=== PATIENT | male | born 1980 ===

== ENCOUNTER 2021-07-13 12:50 | Inpatient (IN) | payer OTHER ==
[2021-07-13 16:39] VITALS: BMI 29.2
[2021-07-13] MEDS ORDERED: guaiFENesin 200 MG/10 ML 10 ML UNIT-DOSE CUPS PO PRN (17:14)
[2021-07-13] MEDS ORDERED: NALOXONE HCL 0.4 MG/ML VIAL IM PRN (17:14)
[2021-07-13] MEDS ORDERED: MAG HYDROX/AL HYDROX/SIMETH 30 ML UNIT-DOSE CUP PO PRN (17:14)
[2021-07-13] MEDS ORDERED: NALOXONE (NARCAN) HCL 4 MG/0.1 ML SPRAY NS PRN (17:14)
[2021-07-13] MEDS ORDERED: MAGNESIUM CITRATE 300 ML BOTTLE PO PRN (17:14)
[2021-07-13] MEDS ORDERED: IBUPROFEN 400 MG TABLET (FP) PO PRN (17:14)
[2021-07-13] MEDS ORDERED: LOPERAMIDE HCL 2 MG CAPSULE PO PRN (17:14)
[2021-07-13] MEDS ORDERED: P-EPHED 60MG/TRIPROLIDI 2.5MG TABLET PO PRN (17:14)
[2021-07-13] MEDS ORDERED: MAGNESIUM HYDROX 2400MG/30ML ORAL SUSPENSION 30 ML CUP PO PRN (17:14)
[2021-07-13] MEDS ORDERED: diphenhydrAMINE HCL 25 MG CAPSULE (FP) PO ONE ×2 (17:19→17:30)
[2021-07-13] MEDS ORDERED: HYDROCORTISONE 1% TOPICAL CREAM 30 GM TUBE TP PRN (17:20)
[2021-07-13] MEDS: MELATONIN 5 MG TABLETS PO SCH (23:31)
[2021-07-13] MEDS: hydrOXYzine PAMOATE 25 MG CAPSULE (FP) PO PRN (23:32)
[2021-07-13] MEDS: THIAMINE HCL 100 MG TABLET (FP) PO SCH (23:32)
[2021-07-13] MEDS: NICOTINE 10 MG CARTRIDGE (INHALER) IH PRN (23:35)
[2021-07-14] MEDS: PRENATAL VITAMINS W/ FOLIC ACID TABLET (FP) PO SCH (09:28)
[2021-07-14] MEDS: TOLNAFTATE 1% POWDER 45 GM POW TP SCH ×3 (09:29→21:16)
[2021-07-14] MEDS: NICOTINE 21 MG/24 HOURS TOPICAL PATCH TD SCH (09:29)
[2021-07-14 10:34] LABS: HEMATOCRIT 44.2 % (35.4-49); HEMOGLOBIN 15.2 GM/dL (11.7-16.9); MCH 31.4 pg (25.7-33.7); MCHC 34.4 g/dl (32.0-35.9); MEAN CELL VOLUME 91.5 fl (80-96); RBC 4.83 M/mm3 (4.00-5.60); RDW 13.8 % (11.9-15.9); WHITE BLOOD COUNT 9.9 K/mm3 (4.0-10.0)
[2021-07-14 10:47] LABS: ALBUMIN 3.1 g/dl (3.4-5.0)
[2021-07-14 10:50] LABS: BILIRUBIN,TOTAL 0.5 mg/dL (0.2-1); CREATININE 1.2 mg/dL (0.55-1.3)
[2021-07-14 10:51] LABS: CALCIUM 8.7 mg/dL (8.5-10.1)
[2021-07-14 11:08] LABS: SYPHILIS W/ RPR CONF NON-REACTIVE (NONREACTIVE)
[2021-07-14 11:37] LABS: PLATELET COUNT 157 10^3/uL (134-434)
[2021-07-14] MEDS: NICOTINE 10 MG CARTRIDGE (INHALER) IH PRN ×2 (11:37→20:33)
[2021-07-14 11:38] LABS: MEAN PLT VOLUME 9.4 fl (7.5-11.1)
[2021-07-14] MEDS: hydrOXYzine PAMOATE 25 MG CAPSULE (FP) PO PRN (13:42)
[2021-07-14] MEDS ORDERED: PT OWN MED DRAWER 7, Y5N ONE (19:32)
[2021-07-14] MEDS: THIAMINE HCL 100 MG TABLET (FP) PO SCH (21:15)
[2021-07-14] MEDS: MELATONIN 5 MG TABLETS PO SCH (21:15)
[2021-07-15] MEDS: hydrOXYzine PAMOATE 25 MG CAPSULE (FP) PO PRN ×2 (09:31→21:33)
[2021-07-15] MEDS: PRENATAL VITAMINS W/ FOLIC ACID TABLET (FP) PO SCH (09:31)
[2021-07-15] MEDS: TOLNAFTATE 1% POWDER 45 GM POW TP SCH ×2 (09:31→21:30)
[2021-07-15] MEDS: NICOTINE 21 MG/24 HOURS TOPICAL PATCH TD SCH (09:32)
[2021-07-15] MEDS ORDERED: PT OWN MED DRAWER 7, Y5N ONE ×2 (09:32→19:57)
[2021-07-15] MEDS: NICOTINE 10 MG CARTRIDGE (INHALER) IH PRN ×2 (12:29→18:40)
[2021-07-15] MEDS: MELATONIN 5 MG TABLETS PO SCH (21:30)
[2021-07-15] MEDS: THIAMINE HCL 100 MG TABLET (FP) PO SCH (21:30)
[2021-07-15] MEDS: ACETAMINOPHEN 325 MG TABLET (FP) PO PRN (21:31)
[2021-07-16] MEDS: NICOTINE 21 MG/24 HOURS TOPICAL PATCH TD SCH (09:53)
[2021-07-16] MEDS: TOLNAFTATE 1% POWDER 45 GM POW TP SCH ×2 (09:53→21:07)
[2021-07-16] MEDS: PRENATAL VITAMINS W/ FOLIC ACID TABLET (FP) PO SCH ×2 (09:53→09:56)
[2021-07-16] MEDS: NICOTINE 10 MG CARTRIDGE (INHALER) IH PRN ×3 (09:56→22:44)
[2021-07-16] MEDS: hydrOXYzine PAMOATE 25 MG CAPSULE (FP) PO PRN ×2 (09:56→21:06)
[2021-07-16] MEDS: MINERAL OIL/PETROLAT/WATER TOPICAL CREAM 113 GM JAR TP SCH (13:54)
[2021-07-16] MEDS: COLLOIDAL OATMEAL 1 BAR EACH TP PRN (13:55)
[2021-07-16] MEDS ORDERED: PT OWN MED DRAWER 7, Y5N ONE (21:05)
[2021-07-16] MEDS: THIAMINE HCL 100 MG TABLET (FP) PO SCH (21:06)
[2021-07-16] MEDS: MELATONIN 5 MG TABLETS PO SCH (21:08)
[2021-07-17] MEDS ORDERED: PT OWN MED DRAWER 7, Y5N ONE (08:48)
[2021-07-17] MEDS: TOLNAFTATE 1% POWDER 45 GM POW TP SCH ×2 (10:15→21:43)
[2021-07-17] MEDS: PRENATAL VITAMINS W/ FOLIC ACID TABLET (FP) PO SCH (10:15)
[2021-07-17] MEDS: NICOTINE 21 MG/24 HOURS TOPICAL PATCH TD SCH (10:15)
[2021-07-17] MEDS: MINERAL OIL/PETROLAT/WATER TOPICAL CREAM 113 GM JAR TP SCH (10:15)
[2021-07-17] MEDS: MELATONIN 5 MG TABLETS PO SCH (21:40)
[2021-07-17] MEDS: THIAMINE HCL 100 MG TABLET (FP) PO SCH (21:40)
[2021-07-17] MEDS: NICOTINE 10 MG CARTRIDGE (INHALER) IH PRN (21:42)
[2021-07-17] MEDS: hydrOXYzine PAMOATE 25 MG CAPSULE (FP) PO PRN (21:42)
[2021-07-18] MEDS: MINERAL OIL/PETROLAT/WATER TOPICAL CREAM 113 GM JAR TP SCH (11:08)
[2021-07-18] MEDS: PRENATAL VITAMINS W/ FOLIC ACID TABLET (FP) PO SCH (11:09)
[2021-07-18] MEDS: TOLNAFTATE 1% POWDER 45 GM POW TP SCH ×2 (11:09→21:32)
[2021-07-18] MEDS: NICOTINE 21 MG/24 HOURS TOPICAL PATCH TD SCH (11:09)
[2021-07-18] MEDS: NICOTINE 10 MG CARTRIDGE (INHALER) IH PRN (17:44)
[2021-07-18] MEDS: MELATONIN 5 MG TABLETS PO SCH (21:32)
[2021-07-18] MEDS: THIAMINE HCL 100 MG TABLET (FP) PO SCH (21:32)
[2021-07-18] MEDS: hydrOXYzine PAMOATE 25 MG CAPSULE (FP) PO PRN (21:32)
[2021-07-18] MEDS ORDERED: PT OWN MED DRAWER 7, Y5N ONE (21:57)
[2021-07-19] MEDS: MINERAL OIL/PETROLAT/WATER TOPICAL CREAM 113 GM JAR TP SCH (10:15)
[2021-07-19] MEDS: TOLNAFTATE 1% POWDER 45 GM POW TP SCH ×2 (10:15→22:27)
[2021-07-19] MEDS: NICOTINE 21 MG/24 HOURS TOPICAL PATCH TD SCH (10:15)
[2021-07-19] MEDS: PRENATAL VITAMINS W/ FOLIC ACID TABLET (FP) PO SCH (10:15)
[2021-07-19] MEDS: NICOTINE 10 MG CARTRIDGE (INHALER) IH PRN ×2 (17:59→21:22)
[2021-07-19] MEDS: THIAMINE HCL 100 MG TABLET (FP) PO SCH (21:21)
[2021-07-19] MEDS: hydrOXYzine PAMOATE 25 MG CAPSULE (FP) PO PRN (21:22)
[2021-07-19] MEDS ORDERED: traZODone HCL 50 MG TABLET (FP) PO SCH (22:00)
[2021-07-20] MEDS ORDERED: PT OWN MED DRAWER 7, Y5N ONE ×3 (09:02→19:58)
[2021-07-20] MEDS: NICOTINE 21 MG/24 HOURS TOPICAL PATCH TD SCH (10:40)
[2021-07-20] MEDS: MINERAL OIL/PETROLAT/WATER TOPICAL CREAM 113 GM JAR TP SCH (10:40)
[2021-07-20] MEDS: PRENATAL VITAMINS W/ FOLIC ACID TABLET (FP) PO SCH (10:40)
[2021-07-20] MEDS: TOLNAFTATE 1% POWDER 45 GM POW TP SCH ×2 (10:40→21:16)
[2021-07-20] MEDS: NICOTINE 10 MG CARTRIDGE (INHALER) IH PRN (21:13)
[2021-07-20] MEDS: hydrOXYzine PAMOATE 25 MG CAPSULE (FP) PO PRN (21:14)
[2021-07-20] MEDS: THIAMINE HCL 100 MG TABLET (FP) PO SCH (21:14)
[2021-07-20] MEDS: traZODone HCL 50 MG TABLET (FP) PO SCH (21:14)
[2021-07-21] MEDS: ACETAMINOPHEN 325 MG TABLET (FP) PO PRN (07:10)
[2021-07-21] MEDS: NICOTINE 21 MG/24 HOURS TOPICAL PATCH TD SCH (10:20)
[2021-07-21] MEDS: TOLNAFTATE 1% POWDER 45 GM POW TP SCH ×2 (10:20→21:14)
[2021-07-21] MEDS: PRENATAL VITAMINS W/ FOLIC ACID TABLET (FP) PO SCH (10:20)
[2021-07-21] MEDS: MINERAL OIL/PETROLAT/WATER TOPICAL CREAM 113 GM JAR TP SCH (10:20)
[2021-07-21] MEDS ORDERED: PT OWN MED DRAWER 7, Y5N ONE ×2 (19:47→22:19)
[2021-07-21] MEDS: traZODone HCL 50 MG TABLET (FP) PO SCH (21:14)
[2021-07-21] MEDS: NICOTINE 10 MG CARTRIDGE (INHALER) IH PRN (21:14)
[2021-07-21] MEDS: THIAMINE HCL 100 MG TABLET (FP) PO SCH (21:15)
[2021-07-21] MEDS: hydrOXYzine PAMOATE 25 MG CAPSULE (FP) PO PRN (21:15)
[2021-07-22] MEDS: TOLNAFTATE 1% POWDER 45 GM POW TP SCH (10:33)
[2021-07-22] MEDS: MINERAL OIL/PETROLAT/WATER TOPICAL CREAM 113 GM JAR TP SCH (10:33)
[2021-07-22] MEDS: NICOTINE 21 MG/24 HOURS TOPICAL PATCH TD SCH (10:33)
[2021-07-22] MEDS: PRENATAL VITAMINS W/ FOLIC ACID TABLET (FP) PO SCH (10:33)
[2021-07-22] MEDS: NICOTINE 10 MG CARTRIDGE (INHALER) IH PRN (17:44)
[2021-07-22] MEDS: traZODone HCL 50 MG TABLET (FP) PO SCH (21:04)
[2021-07-22] MEDS: hydrOXYzine PAMOATE 25 MG CAPSULE (FP) PO PRN (21:05)
[2021-07-22] MEDS: THIAMINE HCL 100 MG TABLET (FP) PO SCH (21:05)
[2021-07-22] MEDS ORDERED: PT OWN MED DRAWER 7, Y5N ONE ×2 (21:06→22:07)
[2021-07-23] MEDS: TOLNAFTATE 1% POWDER 45 GM POW TP SCH ×3 (00:06→22:25)
[2021-07-23] MEDS ORDERED: PT OWN MED DRAWER 7, Y5N ONE ×3 (09:49→21:06)
[2021-07-23] MEDS: PRENATAL VITAMINS W/ FOLIC ACID TABLET (FP) PO SCH (10:20)
[2021-07-23] MEDS: MINERAL OIL/PETROLAT/WATER TOPICAL CREAM 113 GM JAR TP SCH (10:20)
[2021-07-23] MEDS: NICOTINE 21 MG/24 HOURS TOPICAL PATCH TD SCH (10:20)
[2021-07-23] MEDS: THIAMINE HCL 100 MG TABLET (FP) PO SCH (21:03)
[2021-07-23] MEDS: NICOTINE 10 MG CARTRIDGE (INHALER) IH PRN (21:06)
[2021-07-23] MEDS: hydrOXYzine PAMOATE 25 MG CAPSULE (FP) PO PRN (21:06)
[2021-07-23] MEDS ORDERED: QUEtiapine FUMARATE 100 MG TABLET (FP) PO SCH (22:00)
[2021-07-24] MEDS: PRENATAL VITAMINS W/ FOLIC ACID TABLET (FP) PO SCH (09:40)
[2021-07-24] MEDS: TOLNAFTATE 1% POWDER 45 GM POW TP SCH ×2 (09:41→21:26)
[2021-07-24] MEDS: MINERAL OIL/PETROLAT/WATER TOPICAL CREAM 113 GM JAR TP SCH (09:41)
[2021-07-24] MEDS: NICOTINE 21 MG/24 HOURS TOPICAL PATCH TD SCH (09:41)
[2021-07-24] MEDS: NICOTINE 10 MG CARTRIDGE (INHALER) IH PRN ×2 (09:41→21:08)
[2021-07-24] MEDS ORDERED: PT OWN MED DRAWER 7, Y5N ONE ×2 (20:23→23:40)
[2021-07-24] MEDS: THIAMINE HCL 100 MG TABLET (FP) PO SCH (21:06)
[2021-07-24] MEDS: SUVOREXANT 10 MG TABLET PO PRN (21:06)
[2021-07-24] MEDS: hydrOXYzine PAMOATE 25 MG CAPSULE (FP) PO PRN (21:06)
[2021-07-25] MEDS ORDERED: PT OWN MED DRAWER 7, Y5N ONE ×3 (09:00→21:15)
[2021-07-25] MEDS: NICOTINE 21 MG/24 HOURS TOPICAL PATCH TD SCH (10:08)
[2021-07-25] MEDS: TOLNAFTATE 1% POWDER 45 GM POW TP SCH ×2 (10:08→21:18)
[2021-07-25] MEDS: PRENATAL VITAMINS W/ FOLIC ACID TABLET (FP) PO SCH (10:08)
[2021-07-25] MEDS: MINERAL OIL/PETROLAT/WATER TOPICAL CREAM 113 GM JAR TP SCH (10:08)
[2021-07-25] MEDS: THIAMINE HCL 100 MG TABLET (FP) PO SCH (21:06)
[2021-07-25] MEDS: NICOTINE 10 MG CARTRIDGE (INHALER) IH PRN (21:12)
[2021-07-25] MEDS: SUVOREXANT 10 MG TABLET PO PRN (21:14)
[2021-07-25] MEDS: COLLOIDAL OATMEAL 1 BAR EACH TP PRN (21:17)
[2021-07-26] MEDS: TOLNAFTATE 1% POWDER 45 GM POW TP SCH ×2 (10:52→21:18)
[2021-07-26] MEDS: MINERAL OIL/PETROLAT/WATER TOPICAL CREAM 113 GM JAR TP SCH (10:52)
[2021-07-26] MEDS: PRENATAL VITAMINS W/ FOLIC ACID TABLET (FP) PO SCH (10:52)
[2021-07-26] MEDS: NICOTINE 21 MG/24 HOURS TOPICAL PATCH TD SCH (10:52)
[2021-07-26] MEDS ORDERED: PT OWN MED DRAWER 7, Y5N ONE (20:01)
[2021-07-26] MEDS: NICOTINE 10 MG CARTRIDGE (INHALER) IH PRN (21:11)
[2021-07-26] MEDS: hydrOXYzine PAMOATE 25 MG CAPSULE (FP) PO PRN (21:12)
[2021-07-26] MEDS: THIAMINE HCL 100 MG TABLET (FP) PO SCH (21:12)
[2021-07-26] MEDS: SUVOREXANT 15 MG TABLET PO PRN (21:13)
[2021-07-27] MEDS: NICOTINE 10 MG CARTRIDGE (INHALER) IH PRN ×2 (09:37→21:04)
[2021-07-27] MEDS: PRENATAL VITAMINS W/ FOLIC ACID TABLET (FP) PO SCH (09:37)
[2021-07-27] MEDS: TOLNAFTATE 1% POWDER 45 GM POW TP SCH ×2 (09:38→23:12)
[2021-07-27] MEDS: MINERAL OIL/PETROLAT/WATER TOPICAL CREAM 113 GM JAR TP SCH (09:38)
[2021-07-27] MEDS: NICOTINE 21 MG/24 HOURS TOPICAL PATCH TD SCH (09:38)
[2021-07-27] MEDS: SUVOREXANT 15 MG TABLET PO PRN (21:03)
[2021-07-27] MEDS: THIAMINE HCL 100 MG TABLET (FP) PO SCH (21:03)
[2021-07-27] MEDS: hydrOXYzine PAMOATE 25 MG CAPSULE (FP) PO PRN (21:03)
[2021-07-28] MEDS: MINERAL OIL/PETROLAT/WATER TOPICAL CREAM 113 GM JAR TP SCH (11:43)
[2021-07-28] MEDS: TOLNAFTATE 1% POWDER 45 GM POW TP SCH ×2 (11:43→21:41)
[2021-07-28] MEDS: NICOTINE 21 MG/24 HOURS TOPICAL PATCH TD SCH (11:43)
[2021-07-28] MEDS: PRENATAL VITAMINS W/ FOLIC ACID TABLET (FP) PO SCH (11:43)
[2021-07-28] MEDS: NICOTINE 10 MG CARTRIDGE (INHALER) IH PRN ×2 (14:20→21:13)
[2021-07-28] MEDS: hydrOXYzine PAMOATE 25 MG CAPSULE (FP) PO PRN (21:12)
[2021-07-28] MEDS: SUVOREXANT 15 MG TABLET PO PRN (21:12)
[2021-07-28] MEDS: THIAMINE HCL 100 MG TABLET (FP) PO SCH (21:12)
[2021-07-29] MEDS: PRENATAL VITAMINS W/ FOLIC ACID TABLET (FP) PO SCH (10:13)
[2021-07-29] MEDS: MINERAL OIL/PETROLAT/WATER TOPICAL CREAM 113 GM JAR TP SCH (10:13)
[2021-07-29] MEDS: NICOTINE 21 MG/24 HOURS TOPICAL PATCH TD SCH (10:13)
[2021-07-29] MEDS: TOLNAFTATE 1% POWDER 45 GM POW TP SCH ×2 (10:13→21:08)
[2021-07-29] MEDS ORDERED: PT OWN MED DRAWER 7, Y5N ONE (19:57)
[2021-07-29] MEDS: SUVOREXANT 15 MG TABLET PO PRN (21:07)
[2021-07-29] MEDS: hydrOXYzine PAMOATE 25 MG CAPSULE (FP) PO PRN (21:08)
[2021-07-29] MEDS: THIAMINE HCL 100 MG TABLET (FP) PO SCH (21:08)
[2021-07-29] MEDS: NICOTINE 10 MG CARTRIDGE (INHALER) IH PRN (21:10)
[2021-07-30] MEDS: TOLNAFTATE 1% POWDER 45 GM POW TP SCH ×2 (10:15→21:19)
[2021-07-30] MEDS: NICOTINE 21 MG/24 HOURS TOPICAL PATCH TD SCH (10:15)
[2021-07-30] MEDS: MINERAL OIL/PETROLAT/WATER TOPICAL CREAM 113 GM JAR TP SCH (10:15)
[2021-07-30] MEDS: PRENATAL VITAMINS W/ FOLIC ACID TABLET (FP) PO SCH (10:15)
[2021-07-30] MEDS: NICOTINE 10 MG CARTRIDGE (INHALER) IH PRN ×2 (12:57→21:15)
[2021-07-30] MEDS ORDERED: PT OWN MED DRAWER 7, Y5N ONE ×2 (16:04→21:18)
[2021-07-30] MEDS: SUVOREXANT 20 MG TABLET PO PRN (21:16)
[2021-07-30] MEDS: THIAMINE HCL 100 MG TABLET (FP) PO SCH (21:17)
[2021-07-30] MEDS: hydrOXYzine PAMOATE 25 MG CAPSULE (FP) PO PRN (21:17)
[2021-07-30 22:28] LABS: HIV INTERPRETATION NEGATIVE (NEGATIVE)
[2021-07-31] MEDS: TOLNAFTATE 1% POWDER 45 GM POW TP SCH ×2 (10:03→21:18)
[2021-07-31] MEDS: PRENATAL VITAMINS W/ FOLIC ACID TABLET (FP) PO SCH (10:03)
[2021-07-31] MEDS: NICOTINE 21 MG/24 HOURS TOPICAL PATCH TD SCH (10:03)
[2021-07-31] MEDS: MINERAL OIL/PETROLAT/WATER TOPICAL CREAM 113 GM JAR TP SCH (10:03)
[2021-07-31] MEDS: SUVOREXANT 20 MG TABLET PO PRN (21:16)
[2021-07-31] MEDS: THIAMINE HCL 100 MG TABLET (FP) PO SCH (21:16)
[2021-07-31] MEDS: QUEtiapine FUMARATE 50 MG TABLET PO SCH (21:16)
[2021-07-31] MEDS ORDERED: PT OWN MED DRAWER 7, Y5N ONE (21:17)
[2021-07-31] MEDS: NICOTINE 10 MG CARTRIDGE (INHALER) IH PRN (22:00)
[2021-08-01] MEDS: PRENATAL VITAMINS W/ FOLIC ACID TABLET (FP) PO SCH (10:26)
[2021-08-01] MEDS: TOLNAFTATE 1% POWDER 45 GM POW TP SCH ×2 (10:26→22:03)
[2021-08-01] MEDS: MINERAL OIL/PETROLAT/WATER TOPICAL CREAM 113 GM JAR TP SCH (10:26)
[2021-08-01] MEDS: NICOTINE 21 MG/24 HOURS TOPICAL PATCH TD SCH (10:26)
[2021-08-01] MEDS ORDERED: PT OWN MED DRAWER 7, Y5N ONE ×2 (21:56→22:03)
[2021-08-01] MEDS: NICOTINE 10 MG CARTRIDGE (INHALER) IH PRN (22:00)
[2021-08-01] MEDS: THIAMINE HCL 100 MG TABLET (FP) PO SCH (22:01)
[2021-08-01] MEDS: QUEtiapine FUMARATE 50 MG TABLET PO SCH (22:01)
[2021-08-02] MEDS: NICOTINE 21 MG/24 HOURS TOPICAL PATCH TD SCH (10:10)
[2021-08-02] MEDS: TOLNAFTATE 1% POWDER 45 GM POW TP SCH (10:10)
[2021-08-02] MEDS: MINERAL OIL/PETROLAT/WATER TOPICAL CREAM 113 GM JAR TP SCH (10:10)
[2021-08-02] MEDS: PRENATAL VITAMINS W/ FOLIC ACID TABLET (FP) PO SCH (10:10)
[2021-08-02] MEDS: NICOTINE 10 MG CARTRIDGE (INHALER) IH PRN ×2 (15:18→21:36)
[2021-08-02] MEDS: QUEtiapine FUMARATE 50 MG TABLET PO SCH (21:56)
[2021-08-02] MEDS: SUVOREXANT 20 MG TABLET PO PRN (21:56)
[2021-08-02] MEDS: THIAMINE HCL 100 MG TABLET (FP) PO SCH (21:57)
[2021-08-02] MEDS: NYSTATIN POWDER 100,000 UNITS/GM - 15 GM TOPICAL POWDER TP SCH (21:58)
[2021-08-02] MEDS ORDERED: PT OWN MED DRAWER 7, Y5N ONE (22:00)
[2021-08-03] MEDS: MINERAL OIL/PETROLAT/WATER TOPICAL CREAM 113 GM JAR TP SCH (10:20)
[2021-08-03] MEDS: PRENATAL VITAMINS W/ FOLIC ACID TABLET (FP) PO SCH (10:20)
[2021-08-03] MEDS: NICOTINE 21 MG/24 HOURS TOPICAL PATCH TD SCH (10:20)
[2021-08-03] MEDS: NYSTATIN POWDER 100,000 UNITS/GM - 15 GM TOPICAL POWDER TP SCH ×2 (10:20→21:56)
[2021-08-03] MEDS: hydrOXYzine PAMOATE 25 MG CAPSULE (FP) PO PRN (21:31)
[2021-08-03] MEDS: NICOTINE 10 MG CARTRIDGE (INHALER) IH PRN (21:31)
[2021-08-03] MEDS: THIAMINE HCL 100 MG TABLET (FP) PO SCH (21:31)
[2021-08-03] MEDS: QUEtiapine FUMARATE 50 MG TABLET PO SCH (21:31)
[2021-08-03] MEDS: SUVOREXANT 20 MG TABLET PO PRN (21:32)
[2021-08-03] MEDS ORDERED: PT OWN MED DRAWER 7, Y5N ONE (21:57)
[2021-08-04] MEDS: NICOTINE 21 MG/24 HOURS TOPICAL PATCH TD SCH (10:15)
[2021-08-04] MEDS: PRENATAL VITAMINS W/ FOLIC ACID TABLET (FP) PO SCH (10:15)
[2021-08-04] MEDS: MINERAL OIL/PETROLAT/WATER TOPICAL CREAM 113 GM JAR TP SCH (10:15)
[2021-08-04] MEDS: NYSTATIN POWDER 100,000 UNITS/GM - 15 GM TOPICAL POWDER TP SCH ×2 (10:15→21:42)
[2021-08-04] MEDS: THIAMINE HCL 100 MG TABLET (FP) PO SCH (21:41)
[2021-08-04] MEDS: SUVOREXANT 20 MG TABLET PO PRN (21:41)
[2021-08-04] MEDS: QUEtiapine FUMARATE 50 MG TABLET PO SCH (21:42)
[2021-08-04] MEDS: NICOTINE 10 MG CARTRIDGE (INHALER) IH PRN (21:43)
[2021-08-05] MEDS: PRENATAL VITAMINS W/ FOLIC ACID TABLET (FP) PO SCH (09:24)
[2021-08-05] MEDS: NYSTATIN POWDER 100,000 UNITS/GM - 15 GM TOPICAL POWDER TP SCH ×2 (09:24→22:09)
[2021-08-05] MEDS: NICOTINE 21 MG/24 HOURS TOPICAL PATCH TD SCH (09:24)
[2021-08-05] MEDS: MINERAL OIL/PETROLAT/WATER TOPICAL CREAM 113 GM JAR TP SCH (09:24)
[2021-08-05] MEDS ORDERED: PT OWN MED DRAWER 7, Y5N ONE ×2 (22:07→22:18)
[2021-08-05] MEDS: QUEtiapine FUMARATE 50 MG TABLET PO SCH (22:08)
[2021-08-05] MEDS: SUVOREXANT 20 MG TABLET PO PRN (22:08)
[2021-08-05] MEDS: THIAMINE HCL 100 MG TABLET (FP) PO SCH (22:08)
[2021-08-05] MEDS: NICOTINE 10 MG CARTRIDGE (INHALER) IH PRN (22:14)
[2021-08-06 07:29] VITALS: BP 167/105; PULSE 114; TEMP 96.9
[2021-08-06] MEDS: NICOTINE 10 MG CARTRIDGE (INHALER) IH PRN (08:23)
== END 2021-08-06 08:50 | disposition home or self-care (01) | DRG 772 ==
LOC: YASAS 12:50 → Y3E 22:00
PROVIDERS: ADMIT Allergy & Immunology; ATTEND Allergy & Immunology
PROC: HZ42ZZZ Group Counseling for Substance Abuse Treatment, Cognitive-Behavioral (ICD-10-PCS; principal; 2021-07-13)
DX: F11.20 Opioid dependence, uncomplicated (principal); F10.20 Alcohol dependence, uncomplicated; F14.20 Cocaine dependence, uncomplicated; F17.210 Nicotine dependence, cigarettes, uncomplicated; F32.A Depression, unspecified; F19.24 Other psychoactive substance dependence with psychoactive substance-induced mood disorder; F19.282 Other psychoactive substance dependence with psychoactive substance-induced sleep disorder; B35.3 Tinea pedis; L98.8 Other specified disorders of the skin and subcutaneous tissue; L23.9 Allergic contact dermatitis, unspecified cause; M54.50 Low back pain, unspecified; G89.29 Other chronic pain; R21 Rash and other nonspecific skin eruption; Z56.0 Unemployment, unspecified; Z59.02 Unsheltered homelessness
CPT/HCPCS: 36415; 80053; 85027; 86780; 86803; 87389; C9803; U0003; U0005

== ENCOUNTER 2022-01-10 10:07 | Inpatient (IN) | payer OTHER ==
[2022-01-10 10:34] VITALS: BMI 27.0
[2022-01-10] MEDS ORDERED: LOPERAMIDE HCL 2 MG CAPSULE PO PRN (12:07)
[2022-01-10] MEDS ORDERED: ACETAMINOPHEN 325 MG TABLET (FP) PO PRN (12:07)
[2022-01-10] MEDS ORDERED: P-EPHED 60MG/TRIPROLIDI 2.5MG TABLET PO PRN (12:07)
[2022-01-10] MEDS ORDERED: MAGNESIUM CITRATE 300 ML BOTTLE PO PRN (12:07)
[2022-01-10] MEDS ORDERED: IBUPROFEN 400 MG TABLET (FP) PO PRN (12:07)
[2022-01-10] MEDS ORDERED: MAGNESIUM HYDROX 2400MG/30ML ORAL SUSPENSION 30 ML CUP PO PRN (12:07)
[2022-01-10] MEDS ORDERED: guaiFENesin 200 MG/10 ML 10 ML UNIT-DOSE CUPS PO PRN (12:07)
[2022-01-10] MEDS: PRENATAL VITAMINS W/ FOLIC ACID TABLET (FP) PO SCH (17:43)
[2022-01-10] MEDS: NICOTINE 7 MG/24 HOURS TOPICAL PATCH TD SCH (17:43)
[2022-01-10] MEDS: hydrOXYzine PAMOATE 25 MG CAPSULE (FP) PO SCH ×3 (17:44→21:21)
[2022-01-10] MEDS: NICOTINE 10 MG CARTRIDGE (INHALER) IH PRN (21:20)
[2022-01-10] MEDS: QUEtiapine FUMARATE 100 MG TABLET (FP) PO SCH (21:21)
[2022-01-10] MEDS ORDERED: MELATONIN 5 MG TABLETS PO SCH (22:00)
[2022-01-10] MEDS: THIAMINE HCL 100 MG TABLET (FP) PO SCH (23:22)
[2022-01-11] MEDS: hydrOXYzine PAMOATE 25 MG CAPSULE (FP) PO SCH (06:08)
[2022-01-11] MEDS ORDERED: methaDONE HCL 10 MG TABLET PO SCH (07:45)
[2022-01-11] MEDS ORDERED: methaDONE HCL 10 MG TABLET ONE (08:36)
[2022-01-11] MEDS ORDERED: methaDONE HCL 40 MG DISPERSABLE TABLET ONE (08:36)
[2022-01-11] MEDS: NICOTINE 7 MG/24 HOURS TOPICAL PATCH TD SCH (10:24)
[2022-01-11] MEDS: PRENATAL VITAMINS W/ FOLIC ACID TABLET (FP) PO SCH (10:24)
[2022-01-11] MEDS ORDERED: hydrOXYzine PAMOATE 25 MG CAPSULE (FP) PO PRN (10:39)
[2022-01-11] MEDS: SUVOREXANT 10 MG TABLET PO PRN (21:20)
[2022-01-11] MEDS: QUEtiapine FUMARATE 100 MG TABLET (FP) PO SCH (21:20)
[2022-01-11] MEDS: THIAMINE HCL 100 MG TABLET (FP) PO SCH (21:20)
[2022-01-12] MEDS ORDERED: methaDONE HCL 10 MG TABLET ONE (04:13)
[2022-01-12] MEDS ORDERED: methaDONE HCL 40 MG DISPERSABLE TABLET ONE (04:14)
[2022-01-12] MEDS: PRENATAL VITAMINS W/ FOLIC ACID TABLET (FP) PO SCH (10:08)
[2022-01-12] MEDS: NICOTINE 7 MG/24 HOURS TOPICAL PATCH TD SCH (10:08)
[2022-01-12] MEDS: NICOTINE 10 MG CARTRIDGE (INHALER) IH PRN ×2 (10:10→21:19)
[2022-01-12] MEDS: SUVOREXANT 10 MG TABLET PO PRN (21:19)
[2022-01-12] MEDS: THIAMINE HCL 100 MG TABLET (FP) PO SCH (21:19)
[2022-01-12] MEDS: QUEtiapine FUMARATE 100 MG TABLET (FP) PO SCH (21:20)
[2022-01-13] MEDS ORDERED: methaDONE HCL 40 MG DISPERSABLE TABLET ONE (03:44)
[2022-01-13] MEDS ORDERED: methaDONE HCL 10 MG TABLET ONE (03:44)
[2022-01-13] MEDS: NICOTINE 10 MG CARTRIDGE (INHALER) IH PRN (10:00)
[2022-01-13] MEDS: PRENATAL VITAMINS W/ FOLIC ACID TABLET (FP) PO SCH (10:00)
[2022-01-13] MEDS: NICOTINE 7 MG/24 HOURS TOPICAL PATCH TD SCH (10:01)
[2022-01-13 14:39] LABS: HEMATOCRIT 40.3 % (35.4-49); HEMOGLOBIN 13.8 GM/dL (11.7-16.9); MCH 30.7 pg (25.7-33.7); MCHC 34.3 g/dl (32.0-35.9); MEAN CELL VOLUME 89.5 fl (80-96); MEAN PLT VOLUME 8.9 fl (7.5-11.1); PLATELET COUNT 157 10^3/uL (134-434); RDW 14.2 % (11.9-15.9); WHITE BLOOD COUNT 11.2 K/mm3 (4.0-10.0)
[2022-01-13 14:56] LABS: ALBUMIN 2.8 g/dl (3.4-5.0); BLOOD UREA NITROGEN 10.6 mg/dL (7-18); CALCIUM 8.2 mg/dL (8.5-10.1); CREATININE 1.3 mg/dL (0.55-1.3)
[2022-01-13 14:58] LABS: TOT PROT 6.3 g/dl (6.4-8.2)
[2022-01-13 15:05] LABS: BILIRUBIN,TOTAL 0.3 mg/dL (0.2-1)
[2022-01-13 15:15] LABS: SYPHILIS W/ RPR CONF NON-REACTIVE (NONREACTIVE)
[2022-01-13] MEDS: THIAMINE HCL 100 MG TABLET (FP) PO SCH (21:17)
[2022-01-13] MEDS: QUEtiapine FUMARATE 100 MG TABLET (FP) PO SCH (21:17)
[2022-01-13] MEDS: SUVOREXANT 10 MG TABLET PO PRN (21:19)
[2022-01-14] MEDS ORDERED: methaDONE HCL 10 MG TABLET ONE (04:54)
[2022-01-14] MEDS ORDERED: methaDONE HCL 40 MG DISPERSABLE TABLET ONE (04:54)
[2022-01-14] MEDS: PRENATAL VITAMINS W/ FOLIC ACID TABLET (FP) PO SCH (09:58)
[2022-01-14] MEDS: NICOTINE 7 MG/24 HOURS TOPICAL PATCH TD SCH (10:00)
[2022-01-14] MEDS: NICOTINE 10 MG CARTRIDGE (INHALER) IH PRN ×2 (10:00→21:24)
[2022-01-14] MEDS: QUEtiapine FUMARATE 100 MG TABLET (FP) PO SCH (21:24)
[2022-01-14] MEDS: THIAMINE HCL 100 MG TABLET (FP) PO SCH (21:24)
[2022-01-15] MEDS ORDERED: methaDONE HCL 10 MG TABLET ONE (05:30)
[2022-01-15] MEDS ORDERED: methaDONE HCL 40 MG DISPERSABLE TABLET ONE (05:30)
[2022-01-15] MEDS: NICOTINE 7 MG/24 HOURS TOPICAL PATCH TD SCH (10:04)
[2022-01-15] MEDS: PRENATAL VITAMINS W/ FOLIC ACID TABLET (FP) PO SCH (10:04)
[2022-01-15] MEDS: NICOTINE 10 MG CARTRIDGE (INHALER) IH PRN ×2 (15:07→21:38)
[2022-01-15 15:23] LABS: EPI CELLS 32 /uL (0-25.1); HYALINE CASTS 6 /uL (0-3.1); URINE APPEARANCE CLEAR; URINE BACTERIA 14 /uL (0-1359); URINE BILIRUBIN NEGATIVE (NEGATIVE); URINE COLOR DK YELLOW; URINE GLUCOSE (UA) NEGATIVE (NEGATIVE); URINE KETONE TRACE (NEGATIVE); URINE LEUK ESTERASE 2+ (NEGATIVE); URINE NITRITE NEGATIVE (NEGATIVE); URINE PROTEIN NEGATIVE (NEGATIVE); URINE WBC 279 /uL (0-25.8)
[2022-01-15 18:48] LABS: URINE CRYSTALS MODERATE /hpf; URINE RBC 61.9 /uL (0-23.9)
[2022-01-15] MEDS: THIAMINE HCL 100 MG TABLET (FP) PO SCH (21:34)
[2022-01-15] MEDS: QUEtiapine FUMARATE 100 MG TABLET (FP) PO SCH (21:34)
[2022-01-15] MEDS: SUVOREXANT 10 MG TABLET PO PRN (21:34)
[2022-01-15] MEDS: busPIRone HCL 10 MG TABLET (FP) PO SCH (21:34)
[2022-01-16] MEDS ORDERED: methaDONE HCL 10 MG TABLET ONE (02:47)
[2022-01-16] MEDS ORDERED: methaDONE HCL 40 MG DISPERSABLE TABLET ONE (02:48)
[2022-01-16] MEDS: PRENATAL VITAMINS W/ FOLIC ACID TABLET (FP) PO SCH (10:22)
[2022-01-16] MEDS: busPIRone HCL 10 MG TABLET (FP) PO SCH ×2 (10:22→21:16)
[2022-01-16] MEDS: NICOTINE 7 MG/24 HOURS TOPICAL PATCH TD SCH (10:22)
[2022-01-16] MEDS: NICOTINE 10 MG CARTRIDGE (INHALER) IH PRN ×2 (11:06→21:15)
[2022-01-16 14:08] LABS: SARS-CoV-2 NAA Not Detected (Not Detected)
[2022-01-16] MEDS: QUEtiapine FUMARATE 100 MG TABLET (FP) PO SCH (21:16)
[2022-01-16] MEDS: THIAMINE HCL 100 MG TABLET (FP) PO SCH (21:16)
[2022-01-16] MEDS: SUVOREXANT 10 MG TABLET PO PRN (21:18)
[2022-01-17] MEDS ORDERED: methaDONE HCL 10 MG TABLET ONE (02:31)
[2022-01-17] MEDS ORDERED: methaDONE HCL 40 MG DISPERSABLE TABLET ONE (02:31)
[2022-01-17] MEDS: busPIRone HCL 10 MG TABLET (FP) PO SCH ×2 (10:06→21:26)
[2022-01-17] MEDS: NICOTINE 10 MG CARTRIDGE (INHALER) IH PRN ×3 (10:06→21:26)
[2022-01-17] MEDS: PRENATAL VITAMINS W/ FOLIC ACID TABLET (FP) PO SCH (10:06)
[2022-01-17] MEDS: NICOTINE 7 MG/24 HOURS TOPICAL PATCH TD SCH (10:06)
[2022-01-17 12:13] LABS: INR 1.16 (0.83-1.09); PROTHROMBIN TIME (PATIENT) 13.4 SEC (9.7-13.0)
[2022-01-17 12:17] LABS: ALBUMIN 2.9 g/dl (3.4-5.0); BLOOD UREA NITROGEN 9.7 mg/dL (7-18); CALCIUM 8.4 mg/dL (8.5-10.1)
[2022-01-17 12:20] LABS: CREATININE 1.2 mg/dL (0.55-1.3)
[2022-01-17 12:23] LABS: BILIRUBIN,TOTAL 0.4 mg/dL (0.2-1); TOT PROT 6.5 g/dl (6.4-8.2)
[2022-01-17] MEDS: MAG HYDROX/AL HYDROX/SIMETH 30 ML UNIT-DOSE CUP PO PRN (12:35)
[2022-01-17] MEDS: QUEtiapine FUMARATE 100 MG TABLET (FP) PO SCH (21:26)
[2022-01-17] MEDS: THIAMINE HCL 100 MG TABLET (FP) PO SCH (21:26)
[2022-01-17] MEDS: SUVOREXANT 10 MG TABLET PO PRN (21:28)
[2022-01-18] MEDS ORDERED: methaDONE HCL 10 MG TABLET ONE (04:55)
[2022-01-18] MEDS ORDERED: methaDONE HCL 40 MG DISPERSABLE TABLET ONE (04:56)
[2022-01-18] MEDS: PRENATAL VITAMINS W/ FOLIC ACID TABLET (FP) PO SCH (10:19)
[2022-01-18] MEDS: busPIRone HCL 10 MG TABLET (FP) PO SCH ×2 (10:19→21:23)
[2022-01-18] MEDS: NICOTINE 7 MG/24 HOURS TOPICAL PATCH TD SCH (10:19)
[2022-01-18] MEDS: MAG HYDROX/AL HYDROX/SIMETH 30 ML UNIT-DOSE CUP PO PRN (10:20)
[2022-01-18] MEDS: NICOTINE 10 MG CARTRIDGE (INHALER) IH PRN ×2 (13:44→21:22)
[2022-01-18] MEDS: SUVOREXANT 10 MG TABLET PO PRN (21:23)
[2022-01-18] MEDS: THIAMINE HCL 100 MG TABLET (FP) PO SCH (21:23)
[2022-01-18] MEDS: QUEtiapine FUMARATE 100 MG TABLET (FP) PO SCH (21:23)
[2022-01-19] MEDS ORDERED: methaDONE HCL 40 MG DISPERSABLE TABLET ONE (03:01)
[2022-01-19] MEDS ORDERED: methaDONE HCL 10 MG TABLET ONE (03:01)
[2022-01-19] MEDS: NICOTINE 10 MG CARTRIDGE (INHALER) IH PRN ×2 (10:30→17:44)
[2022-01-19] MEDS: PRENATAL VITAMINS W/ FOLIC ACID TABLET (FP) PO SCH (10:30)
[2022-01-19] MEDS: busPIRone HCL 10 MG TABLET (FP) PO SCH ×2 (10:30→21:33)
[2022-01-19] MEDS: NICOTINE 7 MG/24 HOURS TOPICAL PATCH TD SCH (10:30)
[2022-01-19] MEDS: MAG HYDROX/AL HYDROX/SIMETH 30 ML UNIT-DOSE CUP PO PRN (10:31)
[2022-01-19] MEDS ORDERED: ONDANSETRON *ODT* 4 MG TABLET SL PRN (12:27)
[2022-01-19] MEDS: QUEtiapine FUMARATE 100 MG TABLET (FP) PO SCH (21:33)
[2022-01-19] MEDS: THIAMINE HCL 100 MG TABLET (FP) PO SCH (21:33)
[2022-01-19] MEDS ORDERED: SUVOREXANT 10 MG TABLET PO ONE (22:00)
[2022-01-20] MEDS ORDERED: methaDONE HCL 40 MG DISPERSABLE TABLET ONE (03:09)
[2022-01-20] MEDS ORDERED: methaDONE HCL 10 MG TABLET ONE (03:09)
[2022-01-20] MEDS: PRENATAL VITAMINS W/ FOLIC ACID TABLET (FP) PO SCH (10:17)
[2022-01-20] MEDS: busPIRone HCL 10 MG TABLET (FP) PO SCH ×2 (10:17→21:38)
[2022-01-20] MEDS: NICOTINE 7 MG/24 HOURS TOPICAL PATCH TD SCH (10:17)
[2022-01-20] MEDS: NICOTINE 10 MG CARTRIDGE (INHALER) IH PRN ×2 (10:17→22:00)
[2022-01-20] MEDS: THIAMINE HCL 100 MG TABLET (FP) PO SCH (21:39)
[2022-01-20] MEDS: QUEtiapine FUMARATE 100 MG TABLET (FP) PO SCH (21:39)
[2022-01-20] MEDS ORDERED: SUVOREXANT 10 MG TABLET PO PRN (22:00)
[2022-01-21] MEDS ORDERED: methaDONE HCL 10 MG TABLET ONE (03:44)
[2022-01-21] MEDS ORDERED: methaDONE HCL 40 MG DISPERSABLE TABLET ONE (03:44)
[2022-01-21 07:19] VITALS: BP 106/73; PULSE 104; TEMP 97.8
[2022-01-21] MEDS: PRENATAL VITAMINS W/ FOLIC ACID TABLET (FP) PO SCH (10:24)
[2022-01-21] MEDS: busPIRone HCL 10 MG TABLET (FP) PO SCH (10:24)
[2022-01-21] MEDS: NICOTINE 7 MG/24 HOURS TOPICAL PATCH TD SCH (10:24)
[2022-01-21] MEDS: MAG HYDROX/AL HYDROX/SIMETH 30 ML UNIT-DOSE CUP PO PRN (10:25)
[2022-01-21] MEDS: NICOTINE 10 MG CARTRIDGE (INHALER) IH PRN (10:28)
[2022-01-21] MEDS ORDERED: FAMOTIDINE 20 MG TABLET PO SCH (11:00)
== END 2022-01-21 13:32 | disposition home or self-care (01) | DRG 772 ==
LOC: YASAS 10:07 → Y5N 15:48
PROVIDERS: ADMIT Allergy & Immunology; ATTEND Allergy & Immunology
PROC: HZ42ZZZ Group Counseling for Substance Abuse Treatment, Cognitive-Behavioral (ICD-10-PCS; principal; 2022-01-10)
DX: F11.20 Opioid dependence, uncomplicated (principal); F10.20 Alcohol dependence, uncomplicated; F14.20 Cocaine dependence, uncomplicated; F12.10 Cannabis abuse, uncomplicated; F17.210 Nicotine dependence, cigarettes, uncomplicated; F19.282 Other psychoactive substance dependence with psychoactive substance-induced sleep disorder; F19.24 Other psychoactive substance dependence with psychoactive substance-induced mood disorder; F41.9 Anxiety disorder, unspecified; G35 Multiple sclerosis; L23.9 Allergic contact dermatitis, unspecified cause; L98.8 Other specified disorders of the skin and subcutaneous tissue; M54.50 Low back pain, unspecified; G89.29 Other chronic pain; B35.3 Tinea pedis; R10.13 Epigastric pain; Z62.810 Personal history of physical and sexual abuse in childhood; Z91.410 Personal history of adult physical and sexual abuse; Z59.00 Homelessness unspecified; Z56.0 Unemployment, unspecified
CPT/HCPCS: 36415; 80053; 81003; 82962; 85027; 85610; 86780; 86803; 93005; 93010; C9803-CS; U0003; U0005

== ENCOUNTER 2022-03-15 08:52 | Inpatient (IN) | payer OTHER ==
[2022-03-15 03:27] VITALS: BMI 26.9
[2022-03-15] MEDS ORDERED: methaDONE HCL 10 MG TABLET (FOR DETOX USE ONLY) PO ONE (11:20)
[2022-03-15] MEDS ORDERED: DICYCLOMINE HCL 10 MG CAPSULE PO PRN (11:20)
[2022-03-15] MEDS ORDERED: MAGNESIUM CITRATE 300 ML BOTTLE PO PRN (11:20)
[2022-03-15] MEDS ORDERED: BENZOCAINE/MENTHOL (CHLORASEPTIC ) LOZENGE MM PRN (11:20)
[2022-03-15] MEDS ORDERED: IBUPROFEN 400 MG TABLET (FP) PO PRN (11:20)
[2022-03-15] MEDS ORDERED: MAGNESIUM HYDROX 2400MG/30ML ORAL SUSPENSION 30 ML CUP PO PRN (11:20)
[2022-03-15] MEDS ORDERED: cloNIDine HCL 0.1 MG TABLET PO PRN (11:20)
[2022-03-15] MEDS ORDERED: ACETAMINOPHEN 325 MG TABLET (FP) PO PRN ×2 (11:20)
[2022-03-15] MEDS ORDERED: MAG HYDROX/AL HYDROX/SIMETH 30 ML UNIT-DOSE CUP PO PRN (11:20)
[2022-03-15] MEDS ORDERED: LOPERAMIDE HCL 2 MG CAPSULE PO PRN (11:20)
[2022-03-15] MEDS ORDERED: ONDANSETRON *ODT* 4 MG TABLET SL PRN (11:20)
[2022-03-15] MEDS ORDERED: BISMUTH SUBSALICYLATE 524 MG/30 ML PO PRN (11:20)
[2022-03-15] MEDS ORDERED: NICOTINE POLACRILEX 4 MG GUM BUC PRN (11:20)
[2022-03-15] MEDS ORDERED: NICOTINE 10 MG CARTRIDGE (INHALER) IH PRN (11:20)
[2022-03-15] MEDS ORDERED: hydrOXYzine PAMOATE 25 MG CAPSULE (FP) PO SCH (14:00)
[2022-03-15] MEDS: SULFAMETHOXAZOLE/TRIMETHOPRIM 800MG/160MG D.S. TABLET PO SCH ×2 (14:55→22:56)
[2022-03-15] MEDS: PRENATAL VITAMINS W/ FOLIC ACID TABLET (FP) PO SCH (14:55)
[2022-03-15] MEDS ORDERED: MELATONIN 5 MG TABLETS PO SCH (22:00)
[2022-03-15] MEDS: THIAMINE HCL 100 MG TABLET (FP) PO SCH (22:56)
[2022-03-15] MEDS: METHOCARBAMOL 500 MG TABLET PO PRN (22:57)
[2022-03-16] MEDS ORDERED: methaDONE HCL 10 MG TABLET (FOR DETOX USE ONLY) ONE (09:34)
[2022-03-16 10:57] LABS: HEMOGLOBIN 14.5 GM/dL (11.7-16.9); MCHC 34.5 g/dl (32.0-35.9); MEAN CELL VOLUME 89.8 fl (80-96); MEAN PLT VOLUME 9.2 fl (7.5-11.1); PLATELET COUNT 167 10^3/uL (134-434); RBC 4.67 M/mm3 (4.00-5.60); WHITE BLOOD COUNT 7.4 K/mm3 (4.0-10.0)
[2022-03-16 10:59] LABS: ALBUMIN 3.4 g/dl (3.4-5.0); BLOOD UREA NITROGEN 8.8 mg/dL (7-18)
[2022-03-16 11:01] LABS: CREATININE 1.1 mg/dL (0.55-1.3)
[2022-03-16 11:03] LABS: BILIRUBIN,TOTAL 0.7 mg/dL (0.2-1); TOT PROT 8.3 g/dl (6.4-8.2)
[2022-03-16] MEDS: IBUPROFEN 600 MG TABLET (FP) PO PRN ×2 (11:18→22:19)
[2022-03-16] MEDS: PRENATAL VITAMINS W/ FOLIC ACID TABLET (FP) PO SCH (11:19)
[2022-03-16] MEDS: SULFAMETHOXAZOLE/TRIMETHOPRIM 800MG/160MG D.S. TABLET PO SCH ×2 (11:19→22:19)
[2022-03-16] MEDS: SUVOREXANT 10 MG TABLET PO PRN (22:18)
[2022-03-16] MEDS: METHOCARBAMOL 500 MG TABLET PO PRN (22:19)
[2022-03-16] MEDS: THIAMINE HCL 100 MG TABLET (FP) PO SCH (22:19)
[2022-03-16] MEDS: QUEtiapine FUMARATE 50 MG TABLET PO SCH (22:19)
[2022-03-17] MEDS ORDERED: methaDONE HCL 10 MG TABLET (FOR DETOX USE ONLY) PO ONE (10:00)
[2022-03-17] MEDS: PRENATAL VITAMINS W/ FOLIC ACID TABLET (FP) PO SCH (10:30)
[2022-03-17] MEDS: IBUPROFEN 600 MG TABLET (FP) PO PRN (10:31)
[2022-03-17] MEDS: SULFAMETHOXAZOLE/TRIMETHOPRIM 800MG/160MG D.S. TABLET PO SCH ×2 (10:31→22:24)
[2022-03-17] MEDS: METHOCARBAMOL 500 MG TABLET PO PRN ×2 (10:31→22:26)
[2022-03-17] MEDS: THIAMINE HCL 100 MG TABLET (FP) PO SCH (22:24)
[2022-03-17] MEDS: QUEtiapine FUMARATE 50 MG TABLET PO SCH (22:24)
[2022-03-17] MEDS: SUVOREXANT 10 MG TABLET PO PRN (22:25)
[2022-03-18] MEDS ORDERED: methaDONE HCL 10 MG TABLET (FOR DETOX USE ONLY) ONE (09:15)
[2022-03-18] MEDS: PRENATAL VITAMINS W/ FOLIC ACID TABLET (FP) PO SCH (10:21)
[2022-03-18] MEDS: METHOCARBAMOL 500 MG TABLET PO PRN (10:21)
[2022-03-18] MEDS: IBUPROFEN 600 MG TABLET (FP) PO PRN (10:21)
[2022-03-18] MEDS: SULFAMETHOXAZOLE/TRIMETHOPRIM 800MG/160MG D.S. TABLET PO SCH (10:21)
[2022-03-18 17:19] VITALS: BP 113/72; PULSE 90; TEMP 98.8
[2022-03-19] MEDS ORDERED: methaDONE HCL 10 MG TABLET (FOR DETOX USE ONLY) PO ONE (10:00)
== END 2022-03-18 17:22 | disposition left against medical advice (07) | DRG 770 ==
LOC: YASAS 08:52 → Y3N 13:32
PROVIDERS: ADMIT Allergy & Immunology; ATTEND Surgery
PROC: HZ2ZZZZ Detoxification Services for Substance Abuse Treatment (ICD-10-PCS; principal; 2022-03-15)
DX: F11.23 Opioid dependence with withdrawal (principal); F14.20 Cocaine dependence, uncomplicated; F12.20 Cannabis dependence, uncomplicated; F17.201 Nicotine dependence, unspecified, in remission; F19.282 Other psychoactive substance dependence with psychoactive substance-induced sleep disorder; F19.24 Other psychoactive substance dependence with psychoactive substance-induced mood disorder; G35 Multiple sclerosis; L02.413 Cutaneous abscess of right upper limb; Z62.810 Personal history of physical and sexual abuse in childhood; Z91.410 Personal history of adult physical and sexual abuse; Z56.0 Unemployment, unspecified; Z59.00 Homelessness unspecified; Z91.013 Allergy to seafood
CPT/HCPCS: 36415; 80053; 85027; 86780; C9803-CS; J0735; U0003; U0005

== ENCOUNTER 2022-08-15 13:09 | Inpatient (IN) | payer OTHER ==
[2022-08-15 14:13] VITALS: BMI 25.8
[2022-08-15] MEDS ORDERED: IBUPROFEN 400 MG TABLET (FP) PO PRN (15:39)
[2022-08-15] MEDS ORDERED: cloNIDine HCL 0.1 MG TABLET PO PRN ×2 (15:39→15:50)
[2022-08-15] MEDS ORDERED: methaDONE HCL 10 MG TABLET (FOR DETOX USE ONLY) PO ONE ×2 (15:39→17:15)
[2022-08-15] MEDS ORDERED: MAGNESIUM HYDROX 2400MG/30ML ORAL SUSPENSION 30 ML CUP PO PRN (15:39)
[2022-08-15] MEDS ORDERED: BISMUTH SUBSALICYLATE 524 MG/30 ML PO PRN (15:39)
[2022-08-15] MEDS ORDERED: LOPERAMIDE HCL 2 MG CAPSULE PO PRN (15:39)
[2022-08-15] MEDS ORDERED: ONDANSETRON *ODT* 4 MG TABLET SL PRN (15:39)
[2022-08-15] MEDS ORDERED: METHOCARBAMOL 500 MG TABLET PO PRN (15:39)
[2022-08-15] MEDS ORDERED: MAGNESIUM CITRATE 300 ML BOTTLE PO PRN (15:39)
[2022-08-15] MEDS ORDERED: DICYCLOMINE HCL 10 MG CAPSULE PO PRN (15:39)
[2022-08-15] MEDS ORDERED: NICOTINE POLACRILEX 4 MG GUM BUC PRN (15:39)
[2022-08-15] MEDS ORDERED: BENZOCAINE/MENTHOL (CHLORASEPTIC ) LOZENGE MM PRN (15:39)
[2022-08-15] MEDS ORDERED: IBUPROFEN 600 MG TABLET (FP) PO PRN (15:39)
[2022-08-15] MEDS ORDERED: NALOXONE HCL (KLOXXADO) 8 MG SPRAY NS PRN (15:39)
[2022-08-15] MEDS ORDERED: MAG HYDROX/AL HYDROX/SIMETH 30 ML UNIT-DOSE CUP PO PRN (15:39)
[2022-08-15] MEDS ORDERED: ACETAMINOPHEN 325 MG TABLET (FP) PO PRN ×2 (15:39)
[2022-08-15] MEDS ORDERED: NICOTINE 7 MG/24 HOURS TOPICAL PATCH TD PRN (15:39)
[2022-08-15] MEDS ORDERED: LORazepam 1 MG TABLET PO PRN (15:47)
[2022-08-15] MEDS: hydrOXYzine PAMOATE 25 MG CAPSULE (FP) PO PRN (16:38)
[2022-08-15] MEDS: LORazepam 2 MG TABLET PO SCH ×3 (16:39→23:29)
[2022-08-15] MEDS ORDERED: LORazepam 2 MG TABLET PO SCH (23:00)
[2022-08-15] MEDS: MELATONIN 5 MG TABLETS PO SCH ×2 (23:15→23:31)
[2022-08-15] MEDS: THIAMINE HCL 100 MG TABLET (FP) PO SCH ×2 (23:15→23:31)
[2022-08-16] MEDS: LORazepam 2 MG TABLET PO SCH ×3 (06:05→17:40)
[2022-08-16] MEDS: PRENATAL VITAMINS W/ FOLIC ACID TABLET (FP) PO SCH (10:53)
[2022-08-16 11:28] LABS: HEMATOCRIT 44.1 % (35.4-49); HEMOGLOBIN 15.4 GM/dL (11.7-16.9); MCH 30.9 pg (25.7-33.7); MCHC 34.8 g/dl (32.0-35.9); MEAN CELL VOLUME 88.8 fl (80-96); MEAN PLT VOLUME 8.5 fl (7.5-11.1); PLATELET COUNT 274 10^3/uL (134-434); RBC 4.97 M/mm3 (4.00-5.60); RDW 13.9 % (11.9-15.9); WHITE BLOOD COUNT 10.2 K/mm3 (4.0-10.0)
[2022-08-16 11:31] LABS: ALBUMIN 3.7 g/dl (3.4-5.0); BLOOD UREA NITROGEN 10.9 mg/dL (7-18); CALCIUM 9.7 mg/dL (8.5-10.1)
[2022-08-16 11:37] LABS: BILIRUBIN,TOTAL 0.6 mg/dL (0.2-1); TOT PROT 8.2 g/dl (6.4-8.2)
[2022-08-16] MEDS: MELATONIN 5 MG TABLETS PO SCH (22:49)
[2022-08-16] MEDS: THIAMINE HCL 100 MG TABLET (FP) PO SCH (22:49)
[2022-08-17] MEDS: LORazepam 1 MG TABLET PO SCH ×4 (06:00→22:54)
[2022-08-17] MEDS ORDERED: methaDONE HCL 10 MG TABLET (FOR DETOX USE ONLY) PO ONE ×2 (10:00)
[2022-08-17] MEDS: PRENATAL VITAMINS W/ FOLIC ACID TABLET (FP) PO SCH (10:10)
[2022-08-17] MEDS: amLODIPine BESYLATE 2.5 MG TABLET (FP) PO SCH (10:58)
[2022-08-17] MEDS ORDERED: LORazepam 0.5 MG TABLET ONE ×2 (17:41→21:06)
[2022-08-17] MEDS: hydrOXYzine PAMOATE 25 MG CAPSULE (FP) PO PRN ×2 (17:56→22:56)
[2022-08-17] MEDS: NICOTINE 10 MG CARTRIDGE (INHALER) IH PRN (17:57)
[2022-08-17] MEDS: MELATONIN 5 MG TABLETS PO SCH (22:53)
[2022-08-17] MEDS: THIAMINE HCL 100 MG TABLET (FP) PO SCH (22:53)
[2022-08-18] MEDS ORDERED: LORazepam 0.5 MG TABLET PO PRN
[2022-08-18] MEDS: LORazepam 0.5 MG TABLET PO SCH ×3 (06:07→17:00)
[2022-08-18] MEDS: NICOTINE 10 MG CARTRIDGE (INHALER) IH PRN (06:08)
[2022-08-18] MEDS ORDERED: QUEtiapine FUMARATE 50 MG TABLET PO PRN (08:34)
[2022-08-18 09:40] VITALS: PULSE 97
[2022-08-18] MEDS: PRENATAL VITAMINS W/ FOLIC ACID TABLET (FP) PO SCH (10:18)
[2022-08-18] MEDS: amLODIPine BESYLATE 2.5 MG TABLET (FP) PO SCH (10:18)
[2022-08-18 12:57] VITALS: BP 121/83; RESP 16; TEMP 97.8
[2022-08-19] MEDS ORDERED: LORazepam 0.5 MG TABLET PO ONE (05:00)
[2022-08-19] MEDS ORDERED: methaDONE HCL 10 MG TABLET (FOR DETOX USE ONLY) PO ONE ×2 (10:00)
== END 2022-08-18 17:55 | disposition left against medical advice (07) | DRG 770 ==
LOC: YASAS 13:09 → Y6N 16:10
PROVIDERS: ADMIT Allergy & Immunology; ATTEND Surgery
PROC: HZ2ZZZZ Detoxification Services for Substance Abuse Treatment (ICD-10-PCS; principal; 2022-08-15)
DX: F11.23 Opioid dependence with withdrawal (principal); F13.20 Sedative, hypnotic or anxiolytic dependence, uncomplicated; F14.20 Cocaine dependence, uncomplicated; F17.210 Nicotine dependence, cigarettes, uncomplicated; F19.280 Other psychoactive substance dependence with psychoactive substance-induced anxiety disorder; F19.282 Other psychoactive substance dependence with psychoactive substance-induced sleep disorder; F19.24 Other psychoactive substance dependence with psychoactive substance-induced mood disorder; G35 Multiple sclerosis; I10 Essential (primary) hypertension; M54.50 Low back pain, unspecified; Z62.810 Personal history of physical and sexual abuse in childhood
CPT/HCPCS: 36415; 80053; 82962; 85027; 86780; C9803-CS; U0003; U0005

== ENCOUNTER 2023-05-11 16:19 | Inpatient (IN) | payer OTHER ==
[2023-05-11 20:49] VITALS: BMI 25.4
[2023-05-11] MEDS ORDERED: MAGNESIUM HYDROX 2400MG/30ML ORAL SUSPENSION 30 ML CUP PO PRN (21:31)
[2023-05-11] MEDS ORDERED: hydrOXYzine PAMOATE 25 MG CAPSULE (FP) PO PRN (21:31)
[2023-05-11] MEDS ORDERED: BENZOCAINE/MENTHOL (CHLORASEPTIC ) LOZENGE MM PRN (21:31)
[2023-05-11] MEDS ORDERED: ONDANSETRON *ODT* 4 MG TABLET SL PRN (21:31)
[2023-05-11] MEDS ORDERED: BENZONATATE 200 MG CAPSULE PO PRN (21:31)
[2023-05-11] MEDS ORDERED: NALOXONE HCL 0.4 MG/ML VIAL IM PRN (21:31)
[2023-05-11] MEDS ORDERED: ACETAMINOPHEN 325 MG TABLET (FP) PO PRN (21:31)
[2023-05-11] MEDS ORDERED: IBUPROFEN 400 MG TABLET (FP) PO PRN (21:31)
[2023-05-11] MEDS ORDERED: NALOXONE HCL (KLOXXADO) 8 MG SPRAY NS PRN (21:31)
[2023-05-11] MEDS ORDERED: MAG HYDROX/AL HYDROX/SIMETH 30 ML UNIT-DOSE CUP PO PRN (21:31)
[2023-05-11] MEDS ORDERED: POLYETHYLENE GLYCOL (HEALTHYLAX) 3350 17 GM PACKET PO PRN (21:31)
[2023-05-11] MEDS ORDERED: guaiFENesin 600 MG TABLET.ER (FP) PO PRN (21:31)
[2023-05-11] MEDS ORDERED: BISMUTH SUBSALICYLATE 524 MG/30 ML PO PRN (21:31)
[2023-05-11] MEDS ORDERED: IBUPROFEN 600 MG TABLET (FP) PO PRN (21:31)
[2023-05-11] MEDS ORDERED: METHOCARBAMOL 500 MG TABLET PO PRN (21:31)
[2023-05-11] MEDS ORDERED: LOPERAMIDE HCL 2 MG CAPSULE PO PRN (21:31)
[2023-05-11] MEDS ORDERED: NICOTINE POLACRILEX 2 MG GUM BUC PRN (21:31)
[2023-05-11] MEDS ORDERED: DICYCLOMINE HCL 10 MG CAPSULE PO PRN (21:31)
[2023-05-11] MEDS: MELATONIN 5 MG TABLETS PO SCH (23:02)
[2023-05-11] MEDS: THIAMINE HCL 100 MG TABLET (FP) PO SCH (23:05)
[2023-05-12] MEDS ORDERED: methaDONE HCL 10 MG TABLET PO SCH (07:45)
[2023-05-12] MEDS: methaDONE 80 MG, methaDONE 20 MG PO SCH (08:52)
[2023-05-12] MEDS: NICOTINE 14 MG/24 HOURS TOPICAL PATCH TD SCH (09:01)
[2023-05-12] MEDS: PRENATAL VITAMINS W/ FOLIC ACID TABLET (FP) PO SCH (09:01)
[2023-05-12 10:36] LABS: HEMOGLOBIN 12.2 GM/dL (11.7-16.9); MCH 30.1 pg (25.7-33.7); MEAN CELL VOLUME 88.5 fl (80-96); MEAN PLT VOLUME 8.7 fl (7.5-11.1); PLATELET COUNT 170 10^3/uL (134-434); RBC 4.07 M/mm3 (4.00-5.60); RDW 14.6 % (11.9-15.9); WHITE BLOOD COUNT 7.1 K/mm3 (4.0-10.0)
[2023-05-12 10:44] LABS: POTASSIUM 3.8 mmol/L (3.5-5.1)
[2023-05-12 10:46] LABS: ALBUMIN 2.8 g/dl (3.4-5.0); CALCIUM 8.1 mg/dL (8.5-10.1)
[2023-05-12 10:49] LABS: CREATININE 0.9 mg/dL (0.55-1.3)
[2023-05-12 10:51] LABS: BILIRUBIN,TOTAL 0.2 mg/dL (0.2-1); TOT PROT 6.6 g/dl (6.4-8.2)
[2023-05-12] MEDS: MELATONIN 5 MG TABLETS PO SCH (22:21)
[2023-05-12] MEDS: THIAMINE HCL 100 MG TABLET (FP) PO SCH (22:21)
[2023-05-13] MEDS: methaDONE 80 MG, methaDONE 20 MG PO SCH (05:47)
[2023-05-13 09:24] VITALS: BP 106/64; PULSE 81; RESP 18; TEMP 97.3
[2023-05-13] MEDS: PRENATAL VITAMINS W/ FOLIC ACID TABLET (FP) PO SCH (10:26)
[2023-05-13] MEDS: NICOTINE 14 MG/24 HOURS TOPICAL PATCH TD SCH (10:26)
== END 2023-05-13 12:35 | disposition other institution (70) | DRG 773 ==
LOC: YASAS 16:19 → Y3N 21:39
PROVIDERS: ADMIT Allergy & Immunology; ATTEND Surgery
PROC: HZ2ZZZZ Detoxification Services for Substance Abuse Treatment (ICD-10-PCS; principal; 2023-05-11)
DX: F10.230 Alcohol dependence with withdrawal, uncomplicated (principal); F13.230 Sedative, hypnotic or anxiolytic dependence with withdrawal, uncomplicated; F11.20 Opioid dependence, uncomplicated; F14.20 Cocaine dependence, uncomplicated; F17.210 Nicotine dependence, cigarettes, uncomplicated; F19.980 Other psychoactive substance use, unspecified with psychoactive substance-induced anxiety disorder; I10 Essential (primary) hypertension; M54.50 Low back pain, unspecified; G89.29 Other chronic pain; R29.2 Abnormal reflex; Z99.89 Dependence on other enabling machines and devices; Z91.013 Allergy to seafood; Z59.00 Homelessness unspecified
CPT/HCPCS: 36415; 80053; 85027; 86780; 87635

== ENCOUNTER 2023-05-13 12:40 | Inpatient (IN) | payer OTHER ==
[2023-05-13] MEDS ORDERED: NICOTINE POLACRILEX 4 MG GUM BUC PRN (14:30)
[2023-05-13] MEDS ORDERED: BENZONATATE 200 MG CAPSULE PO PRN (14:30)
[2023-05-13] MEDS ORDERED: NALOXONE HCL 0.4 MG/ML VIAL IVPUSH PRN (14:30)
[2023-05-13] MEDS ORDERED: ACETAMINOPHEN 325 MG TABLET (FP) PO PRN (14:30)
[2023-05-13] MEDS ORDERED: COLLOIDAL OATMEAL 1 BAR EACH TP PRN (14:30)
[2023-05-13] MEDS ORDERED: NALOXONE HCL (KLOXXADO) 8 MG SPRAY NS PRN (14:30)
[2023-05-13] MEDS ORDERED: AMMONIUM LACTATE 12% LOTION 225 GM BOTTLE TP PRN (14:30)
[2023-05-13] MEDS ORDERED: POLYETHYLENE GLYCOL (HEALTHYLAX) 3350 17 GM PACKET PO PRN (14:30)
[2023-05-13] MEDS ORDERED: IBUPROFEN 400 MG TABLET (FP) PO PRN (14:30)
[2023-05-13] MEDS ORDERED: MAG HYDROX/AL HYDROX/SIMETH 30 ML UNIT-DOSE CUP PO PRN (14:30)
[2023-05-13] MEDS ORDERED: hydrOXYzine PAMOATE 25 MG CAPSULE (FP) PO PRN (14:30)
[2023-05-13] MEDS ORDERED: NICOTINE 10 MG CARTRIDGE (INHALER) IH PRN (14:30)
[2023-05-13] MEDS ORDERED: BENZOCAINE/MENTHOL (CHLORASEPTIC ) LOZENGE MM PRN (14:30)
[2023-05-13] MEDS ORDERED: LOPERAMIDE HCL 2 MG CAPSULE PO PRN (14:30)
[2023-05-13] MEDS ORDERED: IBUPROFEN 600 MG TABLET (FP) PO PRN (14:30)
[2023-05-13] MEDS ORDERED: NICOTINE 14 MG/24 HOURS TOPICAL PATCH TD PRN (14:30)
[2023-05-13] MEDS ORDERED: MAGNESIUM HYDROX 2400MG/30ML ORAL SUSPENSION 30 ML CUP PO PRN (14:30)
[2023-05-13] MEDS ORDERED: guaiFENesin 600 MG TABLET.ER (FP) PO PRN (14:30)
[2023-05-13] MEDS: THIAMINE HCL 100 MG TABLET (FP) PO SCH (21:35)
[2023-05-13] MEDS ORDERED: MELATONIN 5 MG TABLETS PO SCH (22:00)
[2023-05-14] MEDS ORDERED: methaDONE HCL 40 MG DISPERSABLE TABLET PO SCH (06:00)
[2023-05-14] MEDS: methaDONE 80 MG, methaDONE 20 MG PO SCH (06:21)
[2023-05-14 06:54] VITALS: RESP 18
[2023-05-14] MEDS: PRENATAL VITAMINS W/ FOLIC ACID TABLET (FP) PO SCH (10:19)
[2023-05-14] MEDS: QUEtiapine FUMARATE 100 MG TABLET (FP) PO SCH (21:08)
[2023-05-14] MEDS: THIAMINE HCL 100 MG TABLET (FP) PO SCH (21:08)
[2023-05-15] MEDS: methaDONE 80 MG, methaDONE 20 MG PO SCH (06:46)
[2023-05-15] MEDS: PRENATAL VITAMINS W/ FOLIC ACID TABLET (FP) PO SCH (09:48)
[2023-05-15] MEDS: BACLOFEN 10 MG TABLET (FP) PO PRN (17:01)
[2023-05-15] MEDS: LACTULOSE 20 GM/30 ML UDC (FOR ORAL USE ONLY) PO SCH ×2 (17:01→21:19)
[2023-05-15] MEDS: THIAMINE HCL 100 MG TABLET (FP) PO SCH (21:18)
[2023-05-15] MEDS: QUEtiapine FUMARATE 100 MG TABLET (FP) PO SCH (21:19)
[2023-05-16] MEDS: methaDONE 80 MG, methaDONE 20 MG PO SCH (06:56)
[2023-05-16] MEDS: PRENATAL VITAMINS W/ FOLIC ACID TABLET (FP) PO SCH (09:35)
[2023-05-16] MEDS: LACTULOSE 20 GM/30 ML UDC (FOR ORAL USE ONLY) PO SCH ×4 (09:35→22:04)
[2023-05-16] MEDS ORDERED: HYDROCORTISONE 0.5% TOPICAL CREAM 30 GM TUBE TP PRN (14:55)
[2023-05-16] MEDS: VITAMINS A AND D TOPICAL OINTMENT 60 GM TUBE TP SCH ×2 (19:13→23:06)
[2023-05-16] MEDS: THIAMINE HCL 100 MG TABLET (FP) PO SCH (22:04)
[2023-05-16] MEDS: BACLOFEN 10 MG TABLET (FP) PO PRN (22:04)
[2023-05-16] MEDS: QUEtiapine FUMARATE 100 MG TABLET (FP) PO SCH (22:04)
[2023-05-17] MEDS: BACLOFEN 10 MG TABLET (FP) PO PRN (06:05)
[2023-05-17] MEDS: methaDONE 80 MG, methaDONE 20 MG PO SCH (06:05)
[2023-05-17] MEDS: VITAMINS A AND D TOPICAL OINTMENT 60 GM TUBE TP SCH ×3 (06:08→18:22)
[2023-05-17] MEDS: PRENATAL VITAMINS W/ FOLIC ACID TABLET (FP) PO SCH (09:36)
[2023-05-17] MEDS: LACTULOSE 20 GM/30 ML UDC (FOR ORAL USE ONLY) PO SCH ×4 (09:37→21:48)
[2023-05-17] MEDS: QUEtiapine FUMARATE 100 MG TABLET (FP) PO SCH (21:48)
[2023-05-17] MEDS: THIAMINE HCL 100 MG TABLET (FP) PO SCH (21:49)
[2023-05-18] MEDS: VITAMINS A AND D TOPICAL OINTMENT 60 GM TUBE TP SCH ×4 (01:11→17:42)
[2023-05-18] MEDS: methaDONE 80 MG, methaDONE 20 MG PO SCH (06:36)
[2023-05-18] MEDS: PRENATAL VITAMINS W/ FOLIC ACID TABLET (FP) PO SCH (10:00)
[2023-05-18] MEDS: BACLOFEN 10 MG TABLET (FP) PO PRN ×2 (10:01→17:43)
[2023-05-18] MEDS: LACTULOSE 20 GM/30 ML UDC (FOR ORAL USE ONLY) PO SCH ×4 (10:01→21:36)
[2023-05-18] MEDS: QUEtiapine FUMARATE 100 MG TABLET (FP) PO SCH (21:36)
[2023-05-18] MEDS: THIAMINE HCL 100 MG TABLET (FP) PO SCH (21:37)
[2023-05-19] MEDS: VITAMINS A AND D TOPICAL OINTMENT 60 GM TUBE TP SCH ×4 (00:40→21:07)
[2023-05-19] MEDS: methaDONE 80 MG, methaDONE 20 MG PO SCH (06:24)
[2023-05-19 07:16] VITALS: BP 115/78; PULSE 100; TEMP 97.4
[2023-05-19] MEDS: LACTULOSE 20 GM/30 ML UDC (FOR ORAL USE ONLY) PO SCH ×4 (09:45→21:10)
[2023-05-19] MEDS: PRENATAL VITAMINS W/ FOLIC ACID TABLET (FP) PO SCH (09:45)
[2023-05-19] MEDS: BACLOFEN 10 MG TABLET (FP) PO PRN (09:45)
[2023-05-19] MEDS: THIAMINE HCL 100 MG TABLET (FP) PO SCH (21:07)
[2023-05-19] MEDS: QUEtiapine FUMARATE 100 MG TABLET (FP) PO SCH (21:07)
== END 2023-05-19 16:50 | disposition left against medical advice (07) | DRG 770 ==
LOC: YASAS 12:40 → Y5N 12:41
PROVIDERS: ADMIT Allergy & Immunology; ATTEND Psychiatry & Neurology Pain Medicine
PROC: HZ42ZZZ Group Counseling for Substance Abuse Treatment, Cognitive-Behavioral (ICD-10-PCS; principal; 2023-05-13)
DX: F10.20 Alcohol dependence, uncomplicated (principal); F13.20 Sedative, hypnotic or anxiolytic dependence, uncomplicated; F11.20 Opioid dependence, uncomplicated; F14.20 Cocaine dependence, uncomplicated; F17.210 Nicotine dependence, cigarettes, uncomplicated; F19.982 Other psychoactive substance use, unspecified with psychoactive substance-induced sleep disorder; G35 Multiple sclerosis; E72.20 Disorder of urea cycle metabolism, unspecified; L30.9 Dermatitis, unspecified; M54.50 Low back pain, unspecified; G89.29 Other chronic pain; Z56.0 Unemployment, unspecified; Z59.00 Homelessness unspecified
CPT/HCPCS: 36415; 82140; 86803; 87522; J0475